=== PATIENT | female | born 1970 | race Caucasian/White ===

== ENCOUNTER 2019-07-07 04:49 | Emergency (ER) | payer OTHER, SELFPAY ==
[2019-07-07 04:51] VITALS: BP 155/88; PULSE 109; RESP 15; TEMP 37; O2SAT 97; BMI 27.6
--- NOTE | 2019-07-07 05:33 | ED.DCSUM_ITS ---
History of Present Illness Chief Complaint: Back Informant: Patient Narrative: Patient states that in December she was doing some gardening when she went to stand up felt some pain in her right buttock area. She had some radiation down the leg. She was treating herself conservatively and eventually started to improve however now the pain is back. She states that she was going to make an appointment with Dr. Abhinav Antunez. She has tried numerous things to help calm this down the past week but it is not helping and she is having a lot of pain. No bowel or bladder dysfunction. No recent trauma. She states that in the past she had a broken tailbone. Past Medical History - Allergies and Home Meds Allergies/Adverse Reactions: Allergies ampicillin Allergy (Verified 07/07/19 04:56) Rash Primary Care Physician: Abhinav Antunez MD [Primary Care Provider] - Smoking Status: Never smoker Review of Systems General: Denies: Chills, Fever, Sweats Eyes: Denies: Visual changes - bilaterally, Diplopia ENT: Denies: Rhinorrhea, Sore throat Cardiovascular: Denies: Chest pain, Palpitations Respiratory: Denies: Dyspnea, Cough, Dyspnea on exertion Gastrointestinal: Denies: Abdominal pain, Nausea, Vomiting, Diarrhea, Melena, Hematochezia Genitourinary: Denies: Dysuria, Hematuria, Frequency Musculoskeletal: Reports: Back pain. Denies: Extremity Pain Skin: Denies: Rash, Wounds Neurological: Reports: Parasthesia - Right foot. Denies: Headache, Weakness, Numbness Physical Exam Vital Signs/Narrative: Vital Signs Temp Pulse Resp BP Pulse Ox 07/07/19 04:51 98.6 F 109 H 15 155/88 H 97 Inital Vital Signs reviewed: Yes General: Well nourished, Well developed, No Acute Distress Head: Normocephalic, Atraumatic Eyes: Perrl, EOMI ENT: Moist mucous membranes, No rhinorrhea Neck: Supple, Nontender Cardiovascular: Regular rate, Regular rhythm, No murmurs Respiratory: No distress, CTA bilaterally, Chest nontender Abdomen: Soft, Nontender, Nondistended, Normal bowel sounds Back: - - She has point tenderness over the piriformis muscle/sciatic notch. There are no neurologic deficits. No rashes Extremities: Nontender, No edema Skin: Normal color, No rash Neurological: Alert, Oriented x3, Cranial nerves II-XII grossly intact, Normal Strength, Normal Sensation Psychological: Normal affect, Normal Mood Diagnostic/Tx/Re-eval - Medical Decision Making This certainly appears to be sciatica. Patient will be given a dose of Toradol as well as Valium and [place]. I will start her on similar medications at home and will ask her to follow-up with primary care. She notes understanding as well as home care including stretching. ED Disposition - Plan for ED Patient: Disposition: Home or Assisted Living Diagnosis: Right sided sciatica Instructions: BACK PAIN w/ SCIATICA Prescriptions: Ibuprofen [Motrin] 600 mg PO Q8H #21 tab Prescription Printed Hydrocodone Bitart/Apap 5-325 [[place] 5MG-325MG] 1 tab PO Q6H PRN PRN 3 Days #12 tab PRN Reason: Pain Prescription Printed Prednisone 40 mg PO DAILY #10 tab Prescription Printed Diazepam [Valium] 5 mg PO Q8 PRN #15 tab PRN Reason: Muscle Spasm Prescription Printed Referrals: Abhinav Antunez MD [Primary Care Provider] - As soon as possible
[2019-07-07] MEDS: Ketorolac 60 MG/2 ML Vial IM (05:48)
[2019-07-07] MEDS: HYDROcodone Bitartrate/Apap 5/325 Tablet PO (05:50)
[2019-07-07] MEDS: diazePAM 5 MG Tablet PO (05:50)
--- NOTE | 2019-07-07 06:14 | ED.RN ---
pt observed on shot time for greater than 15 minutes, no reaction noted by this rn.pt d/c.
[2019-07-07 06:16] VITALS: BP 138/82; PULSE 86; RESP 18; O2SAT 98
== END 2019-07-07 06:17 | disposition home or self-care (01) ==
LOC: ED 05:50
PROVIDERS: Emergency Provider Emergency Medicine; PCP Family Medicine
DX: M54.31 Sciatica, right side (principal)
CPT/HCPCS: 96372; 99283

== ENCOUNTER 2019-07-13 09:06 | Emergency (ER) | payer OTHER, SELFPAY ==
[2019-07-13 09:07] VITALS: BP 205/103; PULSE 102; RESP 16; TEMP 36.6; O2SAT 100; BMI 26.5
--- NOTE | 2019-07-13 09:20 | RAD_ITS ---
STUDY: X-RAY - PELVIS REASON FOR EXAM: Female, 48 years old. pain over right ischio tuberosity TECHNIQUE: One view of the pelvis was obtained. COMPARISON: None. FINDINGS: There is a non-specific bowel gas pattern. Normal visualized soft tissue structures. Normal bilateral iliac wings, sacroiliac joints and visualized sacrum. Normal visualized bilateral superior and inferior pubic rami. Normal pubic symphysis. Normal ischial tuberosities. Normal visualized right femoral head. Normal right acetabulum. Normal right hip joint. Normal visualized left femoral head. Normal left acetabulum. Normal left hip joint. RAD/Pelvis 1 or 2 Views IMPRESSION: No fracture or malalignment. Electronically Signed: Dank Mora MD ([place]) at 10:39 EST , Service support ,
--- NOTE | 2019-07-13 09:20 | RAD_ITS ---
STUDY: X-RAY - LUMBAR SPINE REASON FOR EXAM: Female, 48 years old. previous hx fractured tailbone, chronic low back acute exacerbation TECHNIQUE: 5 view(s) of the lumbar spine were obtained. COMPARISON: None FINDINGS: Normal lumbar lordosis. There is no substantial scoliosis. There is a normal alignment of the vertebrae. There is multilevel endplate spondylosis of the lumbar vertebrae. Mild disc space narrowing at L5-S1. There is no demonstrated fracture. There is no demonstrated spondylolysis of the pars interarticulares. The soft tissue structures are unremarkable. RAD/L/S Spine Min 4 Views IMPRESSION: 1. No lumbar spine fracture. 2. Mild degenerative changes. Electronically Signed: Dank Mora MD ([place]) at 10:41 EST , Service support ,
--- NOTE | 2019-07-13 09:35 | ED.VIS.GEN ---
History of Present Illness Chief Complaint: Other, Pain/Inj Informant: Patient Onset: Weeks - The pain approxi-2 weeks ago. Was seen on July 07 and prescribed NSAID and Valium. There was no imaging obtained at that time. Context: Sudden Onset Timing: Continuous Quality: Pain right lower back and right buttocks Location: Previously documented Current Severity: Moderate Maximum Severity: Severe Worsened by: Movement and sitting Relieved by: Nothing Associated Symptoms: Numbness perineum without bowel or bladder dysfunction. Narrative: Patient is a 48-year-old woman with history of coccyx fracture 2001. Exacerbation sent verbal years ago and this past November. She presents with 2 weeks of back pain on the right side rating to the right buttocks. She says intermittently the pain will radiate posteriorly to the popliteal fossa. She denies foot drop. She denies buckling of her knees going up or down steps. She does report numbness in the perineal region. There is no recent history of trauma. Dictated report from July [address] Franklyn Arellano was read. She denies dysuria, frequency, urgency or hematuria. She denies fever, chills or night sweats. Denies weight gain or weight loss. She does have history of endometriosis. She states she is bleeding vaginally and more so than normal. She is on hormonal therapy for the endometriosis and reason she raises concern regarding the vaginal bleeding. She question if the endometriosis was causing her pain. Prior similar symptoms: Yes Recent Illness/Hospitalization: Yes - Past Medical History (1) Endometriosis Status: Acute Past Medical History - Allergies and Home Meds Allergies/Adverse Reactions: Allergies ampicillin Allergy (Verified 07/13/19 09:09) Rash Primary Care Physician: Abhinav Antunez MD [Primary Care Provider] - Prior records reviewed: Yes Lives: Alone Smoking Status: Never smoker Alcohol: None Drugs: None Review of Systems General: Denies: Chills, Fever, Malaise, Subjective, Sweats, Weight loss, - Eyes: Denies: Visual changes - bilaterally, Blurred Vision - bilaterally ENT: Denies: Rhinorrhea, Sore throat Cardiovascular: Denies: Chest pain, Palpitations Respiratory: Denies: Dyspnea, Dyspnea on exertion Gastrointestinal: Denies: Abdominal pain, Nausea, Vomiting, Diarrhea, Melena, Hematochezia Genitourinary: Denies: Dysuria, Hematuria, Frequency Musculoskeletal: Reports: Back pain. Denies: Myalgias, Arthralgias, Neck pain, Swelling, Extremity Pain, -, - Skin: Reports: Rash, Wounds Neurological: Reports: Numbness. Denies: Weakness, Parasthesia Hematologic: Denies: Easy bruising, Easy bleeding Physical Exam Vital Signs/Narrative: Vital Signs Temp Pulse Resp BP Pulse Ox 07/13/19 09:07 97.9 F 102 H 16 205/103 H 100 Inital Vital Signs reviewed: Yes General: Well nourished, Well developed, Acute Distress Head: Normocephalic, Atraumatic. Negative for: Trauma, Tenderness Eyes: Perrl, EOMI. Negative for: Pale conjunctiva, Scleral icterus ENT: Negative for: Moist mucous membranes, No rhinorrhea Neck: Supple, Nontender, No lymphadenopathy, No JVD Cardiovascular: Regular rate, Regular rhythm, No murmurs, Normal S1, Normal S2 Respiratory: No distress, CTA bilaterally, Chest nontender Abdomen: Soft, Nontender, Nondistended, Normal bowel sounds. Negative for: No masses, Hepatomegaly, Splenomegaly, Mass, Pulsatile mass, Ventral hernia, Umbilical hernia Rectal: Deferred, - - Normal perianal sensation. Back: Normal Inspection, - - Right lower paralumbar pain to palpation. Negative for: Nontender, CVA tenderness, Spinal tenderness Extremities: Nontender, No edema, Tenderness - Tenderness over the right issue tuberosity Skin: Normal color, No rash, No Trauma. Negative for: Cyanosis, Diaphoresis, Jaundice Neurological: Alert, Oriented x3, Cranial nerves II-XII grossly intact, Normal Strength, Normal Sensation, Normal DTR, - - Right leg test is negative on right and left. Patella and ankle reflex are 2+ and symmetric. EHL is intact. 5/5 strength plantar dorsiflexion of the foot. Unable to have her ambulate this time. DP and PT pulse are palpable. Psychological: Tearful Diagnostic/Tx/Re-eval Chest X-Ray - ED: Read by ED Physician, - - Single view x-ray of the pelvis reveals no evidence of arthritis, prior fracture or acute fracture. 4 view x-ray of the lumbar spine reveals minimal degenerative changes anterior superior portion of the vertebral bodies at multiple levels. There is no narrowing of disc space. There are no other abnormalities noted. 07/13/19 09:20 L/S Spine Min 4 Views [RAD] Stat Xray Pelvis [Pelvis 1 or 2 Views] [RAD] Stat Laboratory Results 07/13/19 07/13/19 09:30 09:30 WBC 9.0 RBC 4.80 Hgb 14.0 Hct 43.0 MCV 89.6 MCH 29.2 MCHC 32.6 RDW Std Deviation 42.5 RDW Coeff of Lonnie 13.0 Plt Count 319 MPV 10.0 Immature Gran % (Auto) 0.600 Neut % (Auto) 49.3 Lymph % (Auto) 40.6 [place] % (Auto) 7.4 Eos % (Auto) 1.7 Baso % (Auto) 0.4 Absolute Neuts (auto) 4.4 Absolute Lymphs (auto) 3.63 Nucleated RBC % 0 Sodium 143 Potassium 3.8 Chloride 110 H Carbon Dioxide 27.0 Anion Gap 6 BUN 17 Creatinine 0.89 Estim Creat Clear Calc 65.34 Est GFR (MDRD) Af Amer 87 Est GFR (MDRD) Non-Af 72 BUN/Creatinine Ratio 19.0 Glucose 93 Calcium 8.6 Total Bilirubin 0.30 AST 14 L ALT 25 Alkaline Phosphatase 48 Total Protein 6.9 Albumin 3.6 Globulin 3.3 Albumin/Globulin Ratio 1.1 Vadim tests are unremarkable. X-ray is unremarkable and does not explain patient's symptoms - Medical Decision Making X-rays were obtained of the LS spine and pelvis to assess for occult fracture. Patient was medicated with IV Toradol and morphine. Was informed of her lab and x-ray results. She states she has Valium and hydrocodone as well as NSAID. She was instructed to follow-up with her primary care physician. ED Disposition - Plan for ED Patient: Disposition: Home or Assisted Living Diagnosis: Acute right-sided low back pain without sciatica Instructions: BACK PAIN (Acute or Chronic) Referrals: Abhinav Antunez MD [Primary Care Provider] - 3-5 Days if not improving
[2019-07-13 09:41] LABS: Absolute Lymphocyte Count 3.63 X10^3/uL (0.83-4.51); Absolute Neutrophil Count 4.4 X10^3/uL (2.0-7.7); Basophil# 0.04 X10^3/uL; Basophil% 0.4 % (0-1); Eosinophil# 0.15 X10^3/uL; Eosinophils% 1.7 % (0-5); Lymphocyte # 3.63 X10^3/ul (4.0); Lymphocyte % 40.6 % (19-41); Mean Corp Hgb Conc 32.6 g/dL (32-36); Mean Corpuscular Hgb 29.2 pg (27.0-32.0); Mean Corpuscular Volume 89.6 fL (81-99); Monocyte# 0.66 X10^3/uL; Monocyte% 7.4 % (0-10); NRBC Flagged by Analyzer 0 % (0-5); Neutrophil # 4.42 X10^3/uL (2.7-7.7); Neutrophil % 49.3 % (47-70); Platelet Count 319 K/mm3 (150-450); RBC Distribution Width SD 42.5 fl (35.1-43.9)
[2019-07-13] MEDS: Ketorolac 15 MG/ML Vial IV (09:46)
[2019-07-13] MEDS: Morphine 4 MG/ML Syringe IV (09:47)
[2019-07-13] MEDS: Ondansetron 4 MG/2 ML Vial IV (09:47)
[2019-07-13 09:57] LABS: ALB/GLOB Ratio 1.1 RATIO (0.9-2.4); AST(SGOT) 14 U/L (15-37); Alanine Aminotransfer ALT/SGPT 25 U/L (13-56); Albumin, Serum 3.6 g/dL (3.2-5.0); Alkaline Phosphatase 48 U/L (45-117); Anion Gap 6 (5-15); BUN 17 mg/dL (7-18); Calcium,Total 8.6 mg/dL (8.5-10.1); Chloride 110 mmol/L (98-107); Creatinine, Serum 0.89 mg/dL (0.55-1.02); EST Glomerular Filtration Rate 72 mL/min (>60); Est Glom Filt Rate - Afr Amer 87 mL/min (>60); Estimated Creatinine Clearance 65.34 ml/min; Globulin 3.3 g/dL (2.2-4.2); Glucose 93 mg/dL (74-106); Potassium 3.8 mmol/L (3.5-5.1); Protein, Total 6.9 g/dL (6.4-8.2); Sodium Level 143 mmol/L (136-145)
[2019-07-13 11:14] VITALS: BP 134/66; PULSE 59; RESP 16; O2SAT 97
== END 2019-07-13 11:18 | disposition home or self-care (01) ==
PROVIDERS: Emergency Provider Emergency Medicine; PCP Family Medicine
DX: M54.5 Low back pain (principal)
CPT/HCPCS: 72110; 72170; 80053; 85025; 96374; 96375; 99283; A4216; J2405

== ENCOUNTER → 2020-02-01 | Outpatient (CLI) | payer OTHER, SELFPAY ==
[2020-02-01 09:11] LABS: Cholesterol 235 mg/dL (200); High Density Lipoprotein 42 mg/dL; Triglycerides 393 mg/dL; Very Low Density Lipoprotein 79 mg/dL (5-40)
== END | disposition home or self-care (01) ==
LOC: LAB 08:12
PROVIDERS: PCP Family Medicine; Referring Provider Family Medicine; Visit Provider Family Medicine
DX: Z13.220 Encounter for screening for lipoid disorders (principal)
CPT/HCPCS: 36415; 80061